=== PATIENT | male | born 1960 | race Hispanic/Latino ===

== ENCOUNTER 2021-02-22 14:18 | Emergency (ER) | payer OTHER ==
[2021-02-22] MEDS ORDERED: Sodium Chloride 0.9% 1,000 ML ONE (14:35)
[2021-02-22 14:41] LABS: #Basophils 0.1 thou/uL (0.0-0.2); #Eosinphils 0.1 thou/uL (0.0-0.7); #Lymphocytes 1.6 thou/uL (1.20-3.40); #Monocytes 0.6 thou/uL (0.11-0.59); #Neutrophils 4.6 thou/uL (1.40-6.50); %Eosinophils 1.8 % (0.0-10.0); %Lymphocytes 23.1 % (21.0-51.0); %Monocytes 8.1 % (0.0-10.0); Hemoglobin 16.2 g/dL (14.0-18.0); Mean Corpuscular HGB CONC 32.9 g/dL (32.0-36.0); Mean Corpuscular Volume 91.3 fL (78.0-98.0); Platelet Count 197 thou/uL (130-400); RBC Distribution Width 11.9 % (11.5-14.5)
[2021-02-22 14:58] LABS: ALT (SGPT) 58 U/L (8-55); AST (SGOT) 34 U/L (5-34); Alcohol Less than 10 mg/dL (Less than 10); Alkaline Phosphatase 116 U/L (40-110); Anion Gap 13 mmol/L (10-20); BUN (Urea Nitrogen) 19 mg/dL (8.4-25.7); Bilirubin, Total 0.5 mg/dL (0.2-1.2); Calc. Creatinine Clearance 0 mL/min (70-130); Calcium 9.3 mg/dL (7.8-10.44); Carbon Dioxide 24 mmol/L (22-29); Chloride 105 mmol/L (98-107); Globulin 3.4 g/dL (2.4-3.5); Glucose 128 mg/dL (70-105); Potassium 3.9 mmol/L (3.5-5.1); Protein, Total 7.4 g/dL (6.0-8.3); Sodium 138 mmol/L (136-145)
[2021-02-22] MEDS ORDERED: Lidocaine 1% (PF) 30 ML VIAL ONE (15:08)
== END 2021-02-22 15:42 | disposition home or self-care (01) ==
LOC: NAV ERS 14:18
DX: S51.812A Laceration without foreign body of left forearm, initial encounter (principal); V89.2XXA Person injured in unspecified motor-vehicle accident, traffic, initial encounter
CPT/HCPCS: 12001; 80053; 80307; 85025; 93005; G0390; J2001; J7050